=== PATIENT | male | born 1985 ===

== ENCOUNTER 2019-03-06 19:28 | Emergency (ER) | payer BC ==
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
== END 2019-03-06 19:43 ==
LOC: VM.ED 19:28
DX: Z02.89 Encounter for other administrative examinations (principal); Z04.1 Encounter for examination and observation following transport accident; Z79.899 Other long term (current) drug therapy
CPT/HCPCS: 99282